=== PATIENT | male | born 1965 | race Caucasian/White ===

== ENCOUNTER 2023-06-26 18:40 | Emergency (ER) | payer OTHER, SELFPAY ==
[2023-06-26 18:52] VITALS: BP 130/85
--- NOTE | 2023-06-26 20:07 | ED.GENMED ---
History of Present Illness
General
Chief Complaint: Skin Surface Trauma
Time Seen by Provider: 06/26/23 19:44
Travel History
Have you had any contact with someone who has COVID-19?: No
Do you have any symptoms of coronavirus? Fever > 100 degrees, chills, cough, shortness of breath, sore throat, loss of taste or smell, muscle aches, or headache?: No
History of Present Illness
History of Present Illness:
57-year-old male presents to the emergency department for evaluation of a minor laceration to the left upper eyelid. He was playing with a puppy and the dog jumped on his face and scratched the eyelid. Bleeding is not controlled. This was not a
dog bite. He denies any vision changes or eye pain at this time
Review of Systems
Review of Systems
Allergies reviewed?: Yes
All Other Systems: ROS reviewed and negative except as documented in HPI and ROS
Phy Exam
Physical Exam
Physical Exam:
GEN: Well appearing, NAD, WDWN
HEENT: Oral mucosa moist, no scleral icterus. Subcentimeter superficial transverse laceration to the left upper eyelid, no active bleeding, partial-thickness, no evidence of deep dermal involvement. Extraocular motion normal bilaterally.
Fluorescein stain exam shows no fluorescein uptake to the left eye
Cardiac: Regular rate
Lung: No respiratory distress, no tachypnea
MSK: No gross deformity or injuries
Skin: Good color, no pallor or jaundice, no rashes
Neuro: AO x3, moves all extremities freely
Psych: Calm, cooperative
Course
Vital Signs
Initial and Last Documented VS:
Initial Vital Signs
Temp Pulse Resp BP Pulse Ox
98.7 F 87 18 130/85 99
06/26/23 18:52 06/26/23 18:52 06/26/23 18:52 06/26/23 18:52 06/26/23 18:52
Last Documented Vital Signs
Temp Pulse Resp BP Pulse Ox
98.7 F 87 18 130/85 99
06/26/23 18:52 06/26/23 18:52 06/26/23 18:52 06/26/23 18:52 06/26/23 18:52
MDM/Problems Addressed
MDM/Problems Addressed:
Minor laceration does not require primary closure. No evidence for corneal abrasion. Discussed wound care and supportive care
*Critical Care Note
Total Time (30-74mins, 75-104mins- exclusive of procedures): Not Applicable
ED Attending Note
-
Portions of this chart may have been created with voice recognition software.� Occasional wrong word or��sound alike� substitutions may have occurred due to the inherent limitations of voice recognition software.
Discharge Plan
Departure
Patient Disposition: Home (Routine Discharge)
Date of Disposition: 06/26/23
Time of Disposition: 20:07
Patient with high blood pressure during this ER visit?: No
Discharge Problem:
Eyelid laceration, left
Instructions: Wound Care (DC)
Prescriptions:
No Action
No Current Medications
0
== END 2023-06-26 20:27 | disposition home or self-care (01) ==
LOC: EMR 18:40
PROVIDERS: EMERGENCY PHYSICIAN Emergency Medicine; FAMILY PHYSICIAN Internal Medicine
DX: S01.112A Laceration without foreign body of left eyelid and periocular area, initial encounter (principal); W45.8XXA Other foreign body or object entering through skin, initial encounter
CPT/HCPCS: 99282